=== PATIENT | female | born 1950 | race Caucasian/White ===

== ENCOUNTER → 2018-02-03 09:08 | Outpatient (CLI) | payer MEDICARE, SELFPAY ==
[2018-02-03 09:28] LABS: Add Manual Diff / Slide Review NO; Basophils Percent Auto 1.2 % (0-2); Eosinophils Percent Auto 6.3 % (2-4); Hemoglobin 13.4 g/dL (12.0-16.0); Lymphocytes Percent Auto 28.2 % (25-40); Mean Corpuscular HGB Conc 34.3 % (30-36); Mean Corpuscular Hemoglobin 35.2 PG (26-34); Mean Corpuscular Volume 102.7 fL (80-100); Monocytes Percent Auto 11.6 % (3-14); Neutrophils Absolute Auto 1900 /uL (3000-5900); Neutrophils Percent Auto 52.7 % (50-75); Platelet Count 158 X10^3/uL (150-400); Red Cell Distribution Width 12.9 % (11.6-14.8); White Blood Cell Count 3.6 X10^3/uL (4.5-11.0)
[2018-02-03 09:42] LABS: Alanine Aminotransferase 29 IU/L (9-52); Albumin Globulin Ratio 1.5 (1.0-2.8); Alkaline Phosphatase 60 U/L (38-126); Aspartate Aminotransferase 31 IU/L (14-36); Bilirubin Total 0.5 mg/dL (0.2-1.3); Calcium 8.6 mg/dL (8.4-10.2); Estimated Glomerular Filt Rate > 60.0 mL/min (>60); Globulin 2.7 g/dL (1.7-4.1); Glucose 97 mg/dL (80-110); HEMOLYSIS < 15 (0-50); Potassium 4.2 mmol/L (3.4-5.1); Sodium 140 mmol/L (137-145); Total Protein 6.7 g/dL (6.3-8.2)
== END ==
PROVIDERS: Nurse Practitioner Gerontology; Family Provider Family Medicine; PCP Family Medicine; Visit Provider Specialist
DX: C50.912 Malignant neoplasm of unspecified site of left female breast (principal)
CPT/HCPCS: 36415; 80053; 85025

== ENCOUNTER → 2018-07-23 09:50 | Outpatient (CLI) | payer MEDICARE, SELFPAY ==
[2018-07-23 10:45] LABS: Add Manual Diff / Slide Review NO; Basophils Percent Auto 0.7 % (0-2); Eosinophils Percent Auto 2.8 % (2-4); Hematocrit 38.2 % (36-46); Hemoglobin 13.3 g/dL (12.0-16.0); Lymphocytes Percent Auto 29.5 % (25-40); Mean Corpuscular HGB Conc 34.7 % (30-36); Mean Corpuscular Hemoglobin 34.9 PG (26-34); Mean Corpuscular Volume 100.8 fL (80-100); Monocytes Percent Auto 9.7 % (3-14); Neutrophils Absolute Auto 2200 /uL (3000-5900); Neutrophils Percent Auto 57.3 % (50-75); Platelet Count 384 X10^3/uL (150-400); Red Blood Cell Count 3.79 X10^6/uL (4.0-5.2); Red Cell Distribution Width 11.9 % (11.6-14.8); White Blood Cell Count 3.8 X10^3/uL (4.5-11.0)
[2018-07-23 10:55] LABS: Alanine Aminotransferase 23 IU/L (9-52); Albumin 4.1 g/dL (3.5-5.0); Albumin Globulin Ratio 1.3 (1.0-2.8); Alkaline Phosphatase 79 U/L (38-126); Aspartate Aminotransferase 30 IU/L (14-36); Bilirubin Total 0.4 mg/dL (0.2-1.3); Blood Urea Nitrogen 18 mg/dL (7-17); Calcium 9.1 mg/dL (8.4-10.2); Carbon Dioxide 32 mmol/L (22-32); Chloride 104 mmol/L (98-107); Cholesterol 233 mg/dL (140-199); Estimated Glomerular Filt Rate > 60.0 mL/min (>60); Globulin 3.1 g/dL (1.7-4.1); Glucose 96 mg/dL (80-110); HDL Cholesterol 56 mg/dL (40-60); HEMOLYSIS 21 (0-50); LDL Cholesterol Calculated 166 mg/dL (<100); Sodium 146 mmol/L (137-145); Total Protein 7.2 g/dL (6.3-8.2); Triglycerides 57 mg/dL (35-150)
== END ==
PROVIDERS: Family Provider Physician Assistant; PCP Physician Assistant; Visit Provider Nurse Practitioner Gerontology
DX: E78.5 Hyperlipidemia, unspecified (principal); C50.912 Malignant neoplasm of unspecified site of left female breast
CPT/HCPCS: 36415; 80053; 80061; 85025

== ENCOUNTER → 2018-08-03 09:04 | Outpatient (CLI) | payer MEDICARE, SELFPAY ==
--- NOTE | 2018-08-03 | DI.MG.S_ITS ---
BILATERAL DIGITAL SCREENING MAMMOGRAM 3D/2D WITH CAD POST LUMPECTOMY: 08/03/2018 CLINICAL: Routine screening. Personal history of left breast cancer. Comparison is made to exams dated: 07/14/2017 mammogram, 09/10/2015 mammogram, and 08/15/2014 mammogram - [facility]. There are scattered fibroglandular elements in both breasts. Current study was also evaluated with a Computer Aided Detection (CAD) system. No significant masses, calcifications, or other findings are seen in either breast. There are post treatment changes of the left breast including diffuse left breast skin thickening suggestive of prior radiation therapy. There is a linear scar marker overlying the upper outer left breast with underlying postsurgical changes including surgical clips, fat necrosis with peripheral calcification, and scarring. There has been no significant interval change. IMPRESSION: There is no mammographic evidence of malignancy. A 1 year screening mammogram is recommended. This exam was interpreted at Station ID: [id number]. NOTE: For mammograms, a report in lay terms will be sent to the patient. Approximately 15% of breast malignancies will not be visualized mammographically. In the management of a palpable breast mass, a negative mammogram must not discourage biopsy of a clinically suspicious lesion. Electronically Signed By: Saeid Duke M.D. ecl/:08/04/2018 07:17:13 copy to: Isela Ramos letter sent: Normal Exam ACR BI-RADS Category 2: Benign Finding(s) 3342F
== END ==
PROVIDERS: PCP Physician Assistant; Visit Provider Nurse Practitioner Gerontology
DX: Z12.31 Encounter for screening mammogram for malignant neoplasm of breast (principal); Z85.3 Personal history of malignant neoplasm of breast
CPT/HCPCS: 77063; 77067

== ENCOUNTER → 2018-08-23 09:43 | Outpatient (CLI) | payer MEDICARE, SELFPAY | PROVIDERS: PCP Physician Assistant; Visit Provider Nurse Practitioner Gerontology | DX: M85.851 Other specified disorders of bone density and structure, right thigh (principal); Z78.0 Asymptomatic menopausal state; Z85.3 Personal history of malignant neoplasm of breast; Z82.62 Family history of osteoporosis | CPT/HCPCS: 77080 ==

== ENCOUNTER → 2019-02-14 15:02 | Outpatient (CLI) | payer MEDICARE, SELFPAY ==
[2019-02-14 15:40] LABS: Add Manual Diff / Slide Review NO; Basophils Absolute Auto 0 /uL (0-100); Basophils Percent Auto 1.1 % (0-2); Eosinophils Absolute Auto 300 /uL (0-450); Eosinophils Percent Auto 7.1 % (2-4); Hematocrit 41.4 % (36-46); Lymphocytes Absolute Auto 1100 /uL (1100-4500); Lymphocytes Percent Auto 26.6 % (25-40); Mean Corpuscular HGB Conc 33.7 % (30-36); Mean Corpuscular Volume 100.9 fL (80-100); Monocytes Absolute Auto 400 /uL (0-900); Monocytes Percent Auto 10.1 % (3-14); Neutrophils Absolute Auto 2300 /uL (1500-7000); Neutrophils Percent Auto 55.1 % (50-75); Platelet Count 244 X10^3/uL (150-400); Red Blood Cell Count 4.11 X10^6/uL (4.0-5.2); Red Cell Distribution Width 12.1 % (11.6-14.8); White Blood Cell Count 4.2 X10^3/uL (4.5-11.0)
[2019-02-14 16:20] LABS: Alanine Aminotransferase 18 IU/L (9-52); Albumin Globulin Ratio 1.5 (1.0-2.8); Alkaline Phosphatase 80 U/L (38-126); Aspartate Aminotransferase 22 IU/L (14-36); Bilirubin Total 0.3 mg/dL (0.2-1.3); Blood Urea Nitrogen 16 mg/dL (7-17); Calcium 9.8 mg/dL (8.4-10.2); Carbon Dioxide 31 mmol/L (22-32); Chloride 99 mmol/L (98-107); Estimated Glomerular Filt Rate > 60.0 mL/min (>60); Globulin 2.7 g/dL (1.7-4.1); Glucose 95 mg/dL (80-110); HEMOLYSIS < 15 (0-50); Potassium 3.9 mmol/L (3.4-5.1); Sodium 138 mmol/L (137-145); Total Protein 6.7 g/dL (6.3-8.2)
== END ==
PROVIDERS: PCP Physician Assistant
DX: C50.912 Malignant neoplasm of unspecified site of left female breast (principal)
CPT/HCPCS: 36415; 80053; 85025

== ENCOUNTER → 2019-04-26 11:50 | Outpatient (CLI) | payer MEDICARE, SELFPAY ==
[2019-04-26 13:07] LABS: Add Manual Diff / Slide Review NO; Basophils Absolute Auto 0 /uL (0-100); Basophils Percent Auto 0.9 % (0-2); Eosinophils Absolute Auto 100 /uL (0-450); Eosinophils Percent Auto 2.5 % (2-4); Hematocrit 44.2 % (36-46); Hemoglobin 15.1 g/dL (12.0-16.0); Lymphocytes Absolute Auto 1200 /uL (1100-4500); Lymphocytes Percent Auto 26.4 % (25-40); Mean Corpuscular HGB Conc 34.2 % (30-36); Mean Corpuscular Hemoglobin 34.6 PG (26-34); Mean Corpuscular Volume 101.3 fL (80-100); Monocytes Absolute Auto 500 /uL (0-900); Monocytes Percent Auto 10.7 % (3-14); Neutrophils Absolute Auto 2600 /uL (1500-7000); Neutrophils Percent Auto 59.5 % (50-75); Platelet Count 213 X10^3/uL (150-400); Red Blood Cell Count 4.37 X10^6/uL (4.0-5.2); Red Cell Distribution Width 13.6 % (11.6-14.8); White Blood Cell Count 4.4 X10^3/uL (4.5-11.0)
[2019-04-26 13:18] LABS: Alanine Aminotransferase 23 IU/L (9-52); Albumin 4.3 g/dL (3.5-5.0); Albumin Globulin Ratio 1.6 (1.0-2.8); Alkaline Phosphatase 96 U/L (38-126); Aspartate Aminotransferase 30 IU/L (14-36); Bilirubin Total 0.6 mg/dL (0.2-1.3); Blood Urea Nitrogen 12 mg/dL (7-17); Calcium 9.3 mg/dL (8.4-10.2); Carbon Dioxide 29 mmol/L (22-32); Chloride 101 mmol/L (98-107); Estimated Glomerular Filt Rate > 60.0 mL/min (>60); Globulin 2.7 g/dL (1.7-4.1); Glucose 95 mg/dL (80-110); HEMOLYSIS < 15 (0-50); Sodium 139 mmol/L (137-145)
== END ==
DX: C50.912 Malignant neoplasm of unspecified site of left female breast (principal)
CPT/HCPCS: 36415; 80053; 85025

== ENCOUNTER → 2019-05-09 08:27 | Outpatient (CLI) | payer MEDICARE, SELFPAY ==
--- NOTE | 2019-05-09 08:31 | DI.US.S_ITS ---
ULTRASOUND OF LEFT BREAST AND AXILLA: 05/09/2019 CLINICAL: Palpable left breast lump. Comparison is made to exams dated: 05/09/2019 mammogram, 08/03/2018 mammogram, 01/06/2017 mammogram, 07/14/2017 mammogram, 09/15/2016 mammogram, and 09/12/2015 [facility]. Color flow and real-time ultrasound of the left breast axilla were performed. Robertson scale images of the real-time examination were reviewed. There is a 2 cm x 1.4 cm x 1.5 cm wider than tall oval mass in the left axillary tail 10 cm from the nipple. This oval mass is hypoechoic and heterogeneously echogenic. There are peripheral, rim calcifications as noted on comparison mammogram. The calcifications demonstrated continued coarsening and thickening as expected for maturation of fat necrosis on mammographic evaluation. There is no vascularity. This abnormality correlates as palpated, with mammography findings, and area of clinical concern. This mass is within/adjacent to surgical scarring as noted on both exam and comparison mammograms. No abnormalities were seen sonographically in the left axilla or supraclavicular region. IMPRESSION: BENIGN There is no sonographic evidence of malignancy. The 2 cm x 1.4 cm x 1.5 cm wider than tall oval mass is consistent with expected maturation of fat necrosis with adjacent surgical scarring and is benign. A 1 year screening mammogram is recommended. However, clinical follow up as needed for persistent or worsening symptoms. Patient was instructed to return sooner if any changes in size of the palpable area of concern. This exam was interpreted at Station ID: [id number]. Electronically Signed By: Devin Patel M.D. aty/:05/09/2019 11:09:02 letter sent: Normal Exam Ultrasound BI-RADS: 2 Benign
--- NOTE | 2019-05-09 08:31 | DI.MG.S_ITS ---
BILATERAL DIGITAL DIAGNOSTIC MAMMOGRAM 3D/2D: 05/09/2019 CLINICAL: Personal history of breast cancer. Left breast mass. Comparison is made to exams dated: 08/03/2018 mammogram, 07/14/2017 mammogram, 01/06/2017 mammogram, and 09/15/2016 mammogram - [facility]. There are scattered fibroglandular elements in both breasts. There is 1.6 cm oval fat necrosis with peripherally distributed dystrophic calcifications in the left axillary tail. This correlates as palpated, to the area of reported pain, to post-operative changes, and with triangle skin marker. There are surgical clips and a post-surgical scar associated with the area of fat necrosis. No other significant masses, calcifications, or other findings are seen in either breast. IMPRESSION: INCOMPLETE: NEEDS ADDITIONAL IMAGING EVALUATION The 1.6 cm oval fat necrosis most likely correlates with palpable area of clinical concern, but remains indeterminate. An ultrasound is recommended which is scheduled to immediately follow this exam. This exam was interpreted at Station ID: [id number]. NOTE: For mammograms, a report in lay terms will be sent to the patient. Approximately 15% of breast malignancies will not be visualized mammographically. In the management of a palpable breast mass, a negative mammogram must not discourage biopsy of a clinically suspicious lesion. Electronically Signed By: Devin Patel M.D. aty/:05/09/2019 09:27:42 copy to: Skinny Hua Caitlin M ACR BI-RADS Category 0: Incomplete [id number]
== END ==
DX: R92.8 Other abnormal and inconclusive findings on diagnostic imaging of breast (principal); N64.1 Fat necrosis of breast; C50.912 Malignant neoplasm of unspecified site of left female breast; Z17.0 Estrogen receptor positive status [ER+]; Z79.811 Long term (current) use of aromatase inhibitors
CPT/HCPCS: 76642; 77066; G0279

== ENCOUNTER → 2019-06-22 10:48 | Outpatient (CLI) | payer MEDICARE, SELFPAY ==
[2019-06-22 11:45] LABS: Cholesterol 253 mg/dL (140-199); HDL Cholesterol 85 mg/dL (40-60); LDL Cholesterol Calculated 155 mg/dL (<100); Triglycerides 63 mg/dL (35-150)
[2019-06-22 12:15] LABS: Thyroid Stimulating Hormone 0.77 uIU/mL (0.47-4.68)
== END ==
PROVIDERS: PCP Family Medicine; Visit Provider Family Medicine
DX: C50.912 Malignant neoplasm of unspecified site of left female breast (principal); F32.9 Major depressive disorder, single episode, unspecified; E78.5 Hyperlipidemia, unspecified
CPT/HCPCS: 36415; 80061; 84443

== ENCOUNTER → 2019-08-31 13:08 | Outpatient (CLI) | payer MEDICARE, SELFPAY ==
--- NOTE | 2019-08-31 13:11 | DI.RAD.S_ITS ---
PROCEDURE: XR FOREARM RT 2V INDICATIONS: fall, pain, swelling, r/o fx TECHNIQUE: 2 views of the forearm were acquired. COMPARISON: [facility], CR, XR WRIST LT MIN 3V, 08/31/2019, 13:10. FINDINGS: Bones: One impacted distal radial metaphyseal fracture is present. No suspicious bony lesions. There is osteopenia. Soft tissues: No suspicious soft tissue calcifications or masses. IMPRESSION: Mildly impacted distal radial metaphyseal fracture. Dictated by: Zari Leon M.D. on 08/31/2019 at 16:30 Approved by: Zari Leon M.D. on 08/31/2019 at 16:31
--- NOTE | 2019-08-31 13:11 | DI.RAD.S_ITS ---
PROCEDURE: XR WRIST LT MIN 3V INDICATIONS: fall, pain, swelling, r/o fx TECHNIQUE: 4 views of the wrist were acquired. COMPARISON: [facility], CR, XR FOREARM LT 2V, 08/31/2019, 13:10. FINDINGS: Bones: There is a mildly comminuted fracture involving the distal radial metaphysis with impaction and mild dorsal angulation. No definitive intra-articular involvement. No suspicious bony lesions. Scaphoid view: Scaphoid appears intact. Soft tissues: No suspicious soft tissue calcifications. IMPRESSION: Mildly comminuted distal radial metaphyseal fracture. Dictated by: Zari Leon M.D. on 08/31/2019 at 16:10 Approved by: Zari Leon M.D. on 08/31/2019 at 16:30
== END ==
PROVIDERS: PCP Family Medicine; Visit Provider Physician Assistant
DX: S59.202A Unspecified physeal fracture of lower end of radius, left arm, initial encounter for closed fracture (principal); W19.XXXA Unspecified fall, initial encounter
CPT/HCPCS: 73090; 73110

== ENCOUNTER → 2019-09-02 10:44 | Outpatient (CLI) | payer MEDICARE, SELFPAY ==
[2019-09-02 12:22] LABS: Add Manual Diff / Slide Review NO; Basophils Absolute Auto 0 /uL (0-100); Basophils Percent Auto 0.7 % (0-2); Eosinophils Absolute Auto 100 /uL (0-450); Eosinophils Percent Auto 2.7 % (2-4); Hematocrit 39.4 % (36-46); Hemoglobin 13.5 g/dL (12.0-16.0); Lymphocytes Absolute Auto 900 /uL (1100-4500); Lymphocytes Percent Auto 22.7 % (25-40); Mean Corpuscular HGB Conc 34.3 % (30-36); Mean Corpuscular Volume 102.1 fL (80-100); Monocytes Absolute Auto 400 /uL (0-900); Monocytes Percent Auto 9.4 % (3-14); Neutrophils Absolute Auto 2700 /uL (1500-7000); Neutrophils Percent Auto 64.5 % (50-75); Platelet Count 224 X10^3/uL (150-400); Red Blood Cell Count 3.86 X10^6/uL (4.0-5.2); Red Cell Distribution Width 12.9 % (11.6-14.8); White Blood Cell Count 4.2 X10^3/uL (4.5-11.0)
[2019-09-02 12:35] LABS: Blood Urea Nitrogen 18 mg/dL (7-17); Calcium 9.6 mg/dL (8.4-10.2); Carbon Dioxide 30 mmol/L (22-32); Chloride 103 mmol/L (98-107); Estimated Glomerular Filt Rate > 60.0 mL/min (>60); Glucose 109 mg/dL (80-110); HEMOLYSIS < 15 (0-50); Potassium 4.2 mmol/L (3.4-5.1); Sodium 140 mmol/L (137-145)
== END ==
PROVIDERS: Family Provider Family Medicine; PCP Family Medicine; Visit Provider Orthopaedic Surgery Foot and Ankle Surgery
DX: Z01.818 Encounter for other preprocedural examination (principal); Z01.812 Encounter for preprocedural laboratory examination
CPT/HCPCS: 36415; 80048; 85025; 93005

== ENCOUNTER → 2019-10-05 10:13 | Outpatient (CLI) | payer MEDICARE, SELFPAY ==
[2019-10-05 12:40] LABS: Alanine Aminotransferase 18 IU/L (<35); Albumin 4.4 g/dL (3.5-5.0); Albumin Globulin Ratio 1.8 (1.0-2.8); Alkaline Phosphatase 85 U/L (38-126); Aspartate Aminotransferase 27 IU/L (14-36); Bilirubin Total 0.4 mg/dL (0.2-1.3); Blood Urea Nitrogen 19 mg/dL (7-17); Calcium 9.6 mg/dL (8.4-10.2); Carbon Dioxide 30 mmol/L (22-32); Chloride 103 mmol/L (98-107); Cholesterol 199 mg/dL (140-199); Estimated Glomerular Filt Rate > 60.0 mL/min (>60); Globulin 2.4 g/dL (1.7-4.1); Glucose 102 mg/dL (80-110); HDL Cholesterol 97 mg/dL (40-60); HEMOLYSIS < 15 (0-50); LDL Cholesterol Calculated 92 mg/dL (<100); Potassium 4.3 mmol/L (3.4-5.1); Sodium 139 mmol/L (137-145); Total Protein 6.8 g/dL (6.3-8.2); Triglycerides 51 mg/dL (35-150)
== END ==
PROVIDERS: Family Provider Family Medicine; PCP Family Medicine; Visit Provider Family Medicine
DX: E78.5 Hyperlipidemia, unspecified (principal)
CPT/HCPCS: 36415; 80053; 80061

== ENCOUNTER → 2020-05-10 11:32 | Outpatient (CLI) | payer MEDICARE, SELFPAY ==
--- NOTE | 2020-05-10 | DI.MG.S_ITS ---
BILATERAL DIGITAL SCREENING MAMMOGRAM 3D/2D WITH CAD POST LUMPECTOMY: 05/10/2020 CLINICAL: Routine screening. Personal history of left breast cancer. Family history of breast cancer. Comparison is made to exams dated: 05/09/2019 mammogram, 08/03/2018 mammogram, 07/14/2017 mammogram, 09/10/2015 mammogram, 01/06/2017 mammogram, and 09/12/2015 mammogram - [facility]. There are scattered fibroglandular elements in both breasts. Current study was also evaluated with a Computer Aided Detection (CAD) system. There are benign calcifications in the left breast. There also are benign post operative findings in the left breast. No significant masses, calcifications, or other findings are seen in either breast. There has been no significant interval change. IMPRESSION: BENIGN There is no mammographic evidence of malignancy. A 1 year screening mammogram is recommended. This exam was interpreted at Station ID: [id number]. NOTE: For mammograms, a report in lay terms will be sent to the patient. Approximately 15% of breast malignancies will not be visualized mammographically. In the management of a palpable breast mass, a negative mammogram must not discourage biopsy of a clinically suspicious lesion. Electronically Signed By: Jasmeet moreno/rosario:05/10/2020 15:58:33 letter sent: Normal Exam ACR BI-RADS Category 2: Benign Finding(s) 3342F
== END ==
PROVIDERS: Family Provider Family Medicine; PCP Family Medicine; Referring Provider Internal Medicine; Visit Provider Internal Medicine
DX: Z12.31 Encounter for screening mammogram for malignant neoplasm of breast (principal); Z85.3 Personal history of malignant neoplasm of breast; Z80.3 Family history of malignant neoplasm of breast
CPT/HCPCS: 77063; 77067

== ENCOUNTER → 2020-05-10 11:34 | Outpatient (CLI) | payer MEDICARE, SELFPAY ==
[2020-05-10 12:40] LABS: Add Manual Diff / Slide Review NO; Basophils Absolute Auto 0 /uL (0-100); Basophils Percent Auto 0.6 % (0-2); Eosinophils Absolute Auto 100 /uL (0-450); Eosinophils Percent Auto 2.2 % (2-4); Hematocrit 39.2 % (36-46); Hemoglobin 13.4 g/dL (12.0-16.0); Lymphocytes Absolute Auto 1200 /uL (1100-4500); Lymphocytes Percent Auto 25.2 % (25-40); Mean Corpuscular HGB Conc 34.2 % (30-36); Mean Corpuscular Hemoglobin 34.5 PG (26-34); Mean Corpuscular Volume 100.7 fL (80-100); Monocytes Absolute Auto 300 /uL (0-900); Monocytes Percent Auto 6.9 % (3-14); Neutrophils Absolute Auto 3100 /uL (1500-7000); Neutrophils Percent Auto 65.1 % (50-75); Platelet Count 227 X10^3/uL (150-400); Red Cell Distribution Width 12.5 % (11.6-14.8); White Blood Cell Count 4.7 X10^3/uL (4.5-11.0)
[2020-05-10 13:04] LABS: Alanine Aminotransferase 18 IU/L (<35); Albumin 4.3 g/dL (3.5-5.0); Albumin Globulin Ratio 1.7 (1.0-2.8); Alkaline Phosphatase 87 U/L (38-126); Aspartate Aminotransferase 27 IU/L (14-36); BUN Creatinine Ratio 28.3 (6-22); Bilirubin Total 0.5 mg/dL (0.2-1.3); Blood Urea Nitrogen 13 mg/dL (7-17); Calcium 9.4 mg/dL (8.4-10.2); Carbon Dioxide 30 mmol/L (22-32); Chloride 102 mmol/L (98-107); Estimated Glomerular Filt Rate > 60.0 mL/min (>60); Globulin 2.5 g/dL (1.7-4.1); Glucose 147 mg/dL (80-110); HEMOLYSIS < 15 (0-50); Potassium 3.8 mmol/L (3.4-5.1); Sodium 137 mmol/L (137-145); Total Protein 6.8 g/dL (6.3-8.2)
[2020-05-11 07:15] LABS: CA 15-3 13.9 U/mL (0.0-25.0)
== END ==
PROVIDERS: Family Provider Family Medicine; PCP Family Medicine; Referring Provider Internal Medicine Hematology & Oncology; Visit Provider Internal Medicine Hematology & Oncology
DX: C50.912 Malignant neoplasm of unspecified site of left female breast (principal)
CPT/HCPCS: 36415; 80053; 85025; 86300

== ENCOUNTER → 2021-05-13 10:06 | Outpatient (CLI) | payer MEDICARE, SELFPAY ==
--- NOTE | 2021-05-13 | DI.RAD.S_ITS ---
PROCEDURE: XR DEXA AXIAL SKELETON INDICATIONS: Asymptomatic menopausal state COMPARISON: [facility], CR, XR DEXA AXIAL SKELETON, 08/23/2018, 9:57. FINDINGS: This blank DEXA report has been sent in error by the PACS system. The correct and complete report will be forthcoming in 1-2 days. Thank you for your patience and understanding. Dictated by: Nu Darnell MD, PhD on 05/13/2021 at 12:05 Approved by: Nu Darnell MD, PhD on 05/13/2021 at 12:05
--- NOTE | 2021-05-13 10:07 | DI.MG.S_ITS ---
BILATERAL DIGITAL SCREENING MAMMOGRAM 3D/2D WITH CAD: 05/13/2021 CLINICAL: Routine screening. Personal history of right breast cancer. Family history of breast cancer. Comparison is made to exams dated: 05/10/2020 mammogram, 05/09/2019 mammogram, and 08/03/2018 mammogram - [facility]. There are scattered fibroglandular elements in both breasts. Current study was also evaluated with a Computer Aided Detection (CAD) system. There is a benign area of fat necrosis in the left breast. There also are benign calcifications in both breasts. Additionally, there are benign vascular calcifications in both breasts. Additionally, there also are benign post operative findings in the left breast. No significant masses, calcifications, or other findings are seen in either breast. There has been no significant interval change. IMPRESSION: BENIGN There is no mammographic evidence of malignancy. A 1 year screening mammogram is recommended. This exam was interpreted at Station ID: [id number]. NOTE: For mammograms, a report in lay terms will be sent to the patient. Approximately 15% of breast malignancies will not be visualized mammographically. In the management of a palpable breast mass, a negative mammogram must not discourage biopsy of a clinically suspicious lesion. Electronically Signed By: Jordy garcia/rosario:05/13/2021 11:05:45 copy to: SHANA VASQUEZ letter sent: Normal Exam ACR BI-RADS Category 2: Benign Finding(s) 3342F
== END ==
PROVIDERS: Family Provider Family Medicine; PCP Family Medicine; Referring Provider Internal Medicine; Visit Provider Internal Medicine
DX: Z12.31 Encounter for screening mammogram for malignant neoplasm of breast (principal); M85.851 Other specified disorders of bone density and structure, right thigh; Z80.3 Family history of malignant neoplasm of breast; C50.612 Malignant neoplasm of axillary tail of left female breast; Z78.0 Asymptomatic menopausal state; Z79.811 Long term (current) use of aromatase inhibitors; Z51.81 Encounter for therapeutic drug level monitoring
CPT/HCPCS: 77063; 77067; 77080

== ENCOUNTER → 2021-12-31 10:32 | Outpatient (CLI) | payer MEDICARE, SELFPAY ==
[2021-12-31 12:50] LABS: Add Manual Diff / Slide Review NO; Basophils Absolute Auto 0 /uL (0-100); Basophils Percent Auto 0.5 % (0-2); Eosinophils Absolute Auto 100 /uL (0-450); Eosinophils Percent Auto 2.6 % (2-4); Hemoglobin 13.8 g/dL (12.0-16.0); Lymphocytes Absolute Auto 1200 /uL (1100-4500); Lymphocytes Percent Auto 28.7 % (25-40); Mean Corpuscular HGB Conc 34.5 % (30-36); Mean Corpuscular Hemoglobin 34.2 PG (26-34); Mean Corpuscular Volume 99.3 fL (80-100); Monocytes Absolute Auto 400 /uL (0-900); Monocytes Percent Auto 8.4 % (3-14); Neutrophils Absolute Auto 2600 /uL (1500-7000); Neutrophils Percent Auto 59.8 % (50-75); Platelet Count 236 X10^3/uL (150-400); Red Blood Cell Count 4.02 X10^6/uL (4.0-5.2); Red Cell Distribution Width 12.1 % (11.6-14.8); White Blood Cell Count 4.3 X10^3/uL (4.5-11.0)
[2021-12-31 13:40] LABS: Alanine Aminotransferase 13 IU/L (<35); Albumin 4.2 g/dL (3.5-5.0); Albumin Globulin Ratio 1.6 (1.0-2.8); Alkaline Phosphatase 78 U/L (38-126); Aspartate Aminotransferase 25 IU/L (14-36); BUN Creatinine Ratio 24.4 (6-22); Bilirubin Total 0.4 mg/dL (0.2-1.3); Blood Urea Nitrogen 11 mg/dL (7-17); Carbon Dioxide 29 mmol/L (22-32); Chloride 103 mmol/L (98-107); Cholesterol 247 mg/dL (140-199); Estimated Glomerular Filt Rate > 60.0 mL/min (>60); Globulin 2.7 g/dL (1.7-4.1); Glucose 96 mg/dL (80-110); HDL Cholesterol 102 mg/dL (40-60); HEMOLYSIS < 15 (0-50); LDL Cholesterol Calculated 135 mg/dL (<100); Potassium 4.4 mmol/L (3.4-5.1); Sodium 138 mmol/L (137-145); Total Protein 6.9 g/dL (6.3-8.2); Triglycerides 48 mg/dL (35-150)
[2021-12-31 14:27] LABS: Vitamin B12 > 1000 pg/mL (239-931)
== END ==
PROVIDERS: Family Provider Family Medicine; PCP Family Medicine; Referring Provider Family Medicine; Visit Provider Family Medicine
DX: E78.2 Mixed hyperlipidemia (principal); C50.412 Malignant neoplasm of upper-outer quadrant of left female breast; Z17.0 Estrogen receptor positive status [ER+]; E53.8 Deficiency of other specified B group vitamins
CPT/HCPCS: 36415; 80053; 80061; 82607; 85025

== ENCOUNTER → 2022-08-29 17:24 | Outpatient (CLI) | payer MEDICARE, SELFPAY ==
--- NOTE | 2022-08-29 17:26 | DI.RAD.S_ITS ---
PROCEDURE: XR FOREARM LT 2V INDICATIONS: Bilateral forearm pain TECHNIQUE: 2 views of the forearm were acquired. COMPARISON: [facility], CR, XR FOREARM LT 2V, 08/31/2019, 13:10. FINDINGS: Bones: Postsurgical changes are seen from distal radial fracture fixation with volar plate and screw construct. Metallic hardware is intact. Possible minimally impacted fracture of the radial neck. Background degenerative changes are seen in the wrist. Soft tissues: No suspicious soft tissue calcifications or masses. IMPRESSION: 1. Possible minimally impacted radial neck fracture. Recommend correlation for recent trauma. Dedicated elbow radiographs could be performed for further evaluation. 2. Postsurgical changes from distal radial fracture fixation. Approved by: Alan Crowe M.D. on 08/29/2022 at 21:49
--- NOTE | 2022-08-29 17:26 | DI.RAD.S_ITS ---
PROCEDURE: XR FOREARM RT 2V INDICATIONS: Bilateral forearm pain TECHNIQUE: 2 views of the forearm were acquired. COMPARISON: None. FINDINGS: Bones: No acute fractures or dislocations. No suspicious bony lesions. Soft tissues: No suspicious soft tissue calcifications or masses. IMPRESSION: No acute osseous abnormality. If the symptoms persist, consider cross sectional imaging such as MRI or CT for further assessment. Approved by: Alan Crowe M.D. on 08/29/2022 at 21:47
== END ==
PROVIDERS: Family Provider Family Medicine; PCP Family Medicine; Referring Provider Nurse Practitioner Family; Visit Provider Nurse Practitioner Family
DX: M79.631 Pain in right forearm (principal); M79.632 Pain in left forearm
CPT/HCPCS: 73090

== ENCOUNTER → 2024-08-19 15:50 | Outpatient (CLI) | payer MEDICARE, SELFPAY ==
--- NOTE | 2024-08-19 15:52 | DI.MG.S_ITS ---
BILATERAL DIGITAL SCREENING MAMMOGRAM 3D/2D WITH CAD: 08/19/2024 CLINICAL: Routine screening. Personal history of left breast cancer. Family history. Comparison is made to exams dated: 07/03/2023 mammogram - [facility] [place], 05/13/2021 mammogram, 05/10/2020 mammogram - [facility], 12/19/2021 mammogram - [facility], 05/09/2019 mammogram, and 08/03/2018 mammogram - [facility]. There are scattered areas of fibroglandular density (category b / 25%-50% glandular tissue). Current study was also evaluated with a Computer Aided Detection (CAD) system. There are benign post operative findings in the left breast. No significant masses, calcifications, or other findings are seen in either breast. There has been no significant interval change. IMPRESSION: BENIGN There is no mammographic evidence of malignancy. A 1 year screening mammogram is recommended. This exam was interpreted at Station ID: [id number]. NOTE: For mammograms, a report in lay terms will be sent to the patient. Approximately 15% of breast malignancies will not be visualized mammographically. In the management of a palpable breast mass, a negative mammogram must not discourage biopsy of a clinically suspicious lesion. Electronically Signed By: Jackeline Montoya M.D., Ph.D. alton/rosario:08/24/2024 17:55:54 copy to: SHANA VASQUEZ letter sent: Normal Exam ACR BI-RADS Category 2: Benign
== END ==
PROVIDERS: PCP Nurse Practitioner Family; Visit Provider Nurse Practitioner Family
DX: Z12.31 Encounter for screening mammogram for malignant neoplasm of breast (principal); Z85.3 Personal history of malignant neoplasm of breast; Z80.3 Family history of malignant neoplasm of breast
CPT/HCPCS: 77063; 77067